=== PATIENT | male | born 1950 | race Hispanic/Latino ===

== ENCOUNTER → 2018-11-25 | Outpatient (CLI) | payer OTHER | END | disposition home or self-care (01) | LOC: SHCH 11:03 | PROVIDERS: ATTEND Internal Medicine Cardiovascular Disease | DX: I48.1 Persistent atrial fibrillation (principal) | CPT/HCPCS: 93306 ==

== ENCOUNTER 2018-12-05 07:18 | Day surgery (SDC) | payer OTHER ==
[2018-12-04 10:15] VITALS: BP 91/65
[2018-12-04 10:38] LABS: EOSINOPHILS % (AUTO) 6.2 % (0.0-8.0); HEMATOCRIT 47.7 % (42-54); LYMPHOCYTES % (AUTO) 32.5 % (21.0-51.0); MEAN CORPUSCULAR HEMOGLOBIN 32.1 pg (27.0-33.0); MEAN CORPUSCULAR HGB CONC 33.3 g/dL (32.0-36.0); MEAN CORPUSCULAR VOLUME 96.6 fL (79-99); MONOCYTES % (AUTO) 5.5 % (3.0-13.0); NEUTROPHILS % (AUTO) 54.8 % (40.0-77.0); NUCLEATED RED BLOOD CELLS 0.1 % (0.0-0.19); PLATELET COUNT (AUTO) 199 K/uL (130-400); RED BLOOD CELL COUNT(AUTO) 4.94 MIL/uL (4.50-6.20); RED CELL DISTRIBUTION WIDTH 13.4 % (11.0-15.5); WHITE BLOOD COUNT (AUTO) 4.4 K/uL (4.8-10.8)
[2018-12-04 10:42] LABS: CREATININE 0.8 mg/dL (0.5-1.5); POTASSIUM 4.6 mmol/L (3.5-5.1)
[2018-12-04 10:52] LABS: INR 1.05 (0.85-1.15); PARTIAL THROMBOPLASTIN TIME 27.9 SEC (26.3-35.5)
[~2018-12-05] VITALS: Ht 180.3 cm; Wt 82.0 kg
[2018-12-05] VITALS (11 sets, daily range): BP systolic 90–128; BP diastolic 54–72
[~2018-12-05 07:18] MED LIST: MULT-1296 PO; OMEG-148 PO; RIVA20TA PO
[2018-12-05] MEDS ORDERED: SODIUM CHLORIDE 0.9% 1000ML 1,000 ML IV SCH (08:00)
[2018-12-05] MEDS ORDERED: FENTANYL CITRATE PF 50 MCG/1 ML 2ML VIAL ONE (08:18)
[2018-12-05] MEDS ORDERED: MIDAZOLAM HCL 1 MG/ML 2ML VIAL ONE ×2 (08:19→09:15)
[2018-12-05] MEDS ORDERED: NALOXONE HCL 0.4 MG/1 ML ML ONE (08:24)
[2018-12-05] MEDS ORDERED: FLUMAZENIL 0.1MG/1ML 5ML VIAL IV ONE (08:25)
--- NOTE | 2018-12-05 09:26 | NUR ---
TIME OUT DONE FOR CARDIOVERSION WITH DR. HARMON FOR PT WHO IS A-FIB.
--- NOTE | 2018-12-05 09:28 | NUR ---
PT . RECEIVED 50MCG FENTANYL WAIT FOR MEDICATION TO TAKE EFFECT.
--- NOTE | 2018-12-05 09:30 | NUR ---
PT IS STILL SEMI-AWAKE DR. HARMON ORDERED 1 MG VERSED TO BE GIVEN IVP. Addendum: 12/05/18 at 1040 by SAIRA CHOUDHARY RN RN FAUSTINO ORDERED 25MCG OF FENTANYL IVP
--- NOTE | 2018-12-05 09:30 | NUR ---
PT WAS GIVEN 100 J TO CONVERT/ SHOCK IN UNSUCCESSFUL, PT STILL IN A-FIB
--- NOTE | 2018-12-05 09:32 | NUR ---
PER DR. HARMON 25 MCG OF FENTANYL ORDER IVP, V/S STABLE PT AWAKE TO STIMULI.
--- NOTE | 2018-12-05 09:32 | NUR ---
PT SHOCKED @ 150J BY DR HARMON TO CARDIOVERT / UNSUCCESSFUL. PT V/S STABLE AND AWAKE TO STIMULI.
--- NOTE | 2018-12-05 09:34 | NUR ---
PT. STABLE STILL A-FIB, DR. HARMON INCREASE JOULES TO 200, CARDIOVERSION SUCCESSFUL. PT. IS IN NORMAL SINUS
--- NOTE | 2018-12-05 09:34 | NUR ---
END OF CARDIOVERSION
--- NOTE | 2018-12-05 11:11 | NUR ---
SPOKE WITH DR. HARMON PT CAN BE D/C AT 1200 NOON, CAN HAVE A HEART HEALTHY DIET, F/U IN 4 WEEKS IN OFFICE, RESUME [facility], TO PIC UP MONITOR AT OFFICE ON
--- NOTE | 2018-12-05 11:50 | NUR ---
DISCHARGE INSTRUCTIONS PROVIDED DISCHARGE INSTRUCTIONS TO PATIENT'S SPOUSE AND PROVIDED HER WITH PATIENT'S FOLLOW UP APPOINTMENT. INSTRUCTED HER TO GO TO DR ESCOBEDO OFFICE ON SATURDAY TO [facility], SPOUSE VERBALIZED UNDERSTANDING. ALL QUESTIONS/CONCERNS ADDRESSED.
--- NOTE | 2018-12-05 12:00 | NUR ---
PATIENT DISCHARGED PATIENT DISCHARGED FROM HOSPITAL VIA WHEELCHAIR AND TAKEN TO PRIVATE VEHICLE. PATIENT ABLE TO TRANSFER INTO PRIVATE VEHICLE UNASSISTED DRIVEN BY FAMILY.
== END 2018-12-05 12:00 ==
LOC: DAH 07:18
PROVIDERS: ATTEND Internal Medicine Cardiovascular Disease
DX: I48.0 Paroxysmal atrial fibrillation (principal); E11.9 Type 2 diabetes mellitus without complications; E78.5 Hyperlipidemia, unspecified; Z79.899 Other long term (current) drug therapy; Z79.01 Long term (current) use of anticoagulants; Z87.891 Personal history of nicotine dependence; Z72.89 Other problems related to lifestyle; Z98.890 Other specified postprocedural states
CPT/HCPCS: 36415; 80048; 82948; 85025; 85610; 85730; 92960; 93005 ×2; A4215; A4216; A4221; A4222; A4223 ×3; A4606; J2250; J3010; J7030; 99152; J2310; J3490

== ENCOUNTER → 2019-04-03 | Outpatient (CLI) | payer OTHER ==
[~2019-04-03] VITALS: Ht 182.9 cm; Wt 80.3 kg
[~2019-04-03] MED LIST changes: +REGADENOSON 0.4 MG/5 ML PF SYG IVP SCH
== END | disposition home or self-care (01) ==
LOC: SHCH 07:31
PROVIDERS: ATTEND Internal Medicine Cardiovascular Disease
DX: R06.09 Other forms of dyspnea (principal); R07.9 Chest pain, unspecified
CPT/HCPCS: 78452; 93017; 96374; A9500 ×2; J2785

== ENCOUNTER 2022-04-11 14:03 | Emergency (ER) | payer OTHER ==
[~2022-04-11] VITALS: Ht 180.3 cm; Wt 68.5 kg
[~2022-04-11 14:03] MED LIST changes: -REGADENOSON 0.4 MG/5 ML PF SYG IVP SCH
[2022-04-11 14:25] VITALS: BP 125/55
[2022-04-11 14:55] LABS: BASOPHILS % (AUTO) 0.8 % (0.0-5.0); EOSINOPHILS % (AUTO) 1.2 % (0.0-8.0); HEMATOCRIT 39.1 % (42-54); LYMPHOCYTES % (AUTO) 11.7 % (21.0-51.0); MEAN CORPUSCULAR HEMOGLOBIN 31.3 pg (27.0-33.0); MEAN CORPUSCULAR HGB CONC 33.8 g/dL (32.0-36.0); MEAN CORPUSCULAR VOLUME 92.7 fL (79-99); MONOCYTES % (AUTO) 8.7 % (3.0-13.0); NEUTROPHILS % (AUTO) 77.4 % (40.0-77.0); PLATELET COUNT (AUTO) 165 K/uL (130-400); RED BLOOD CELL COUNT(AUTO) 4.22 MIL/uL (4.50-6.20); RED CELL DISTRIBUTION WIDTH 13.4 % (11.0-15.5); WHITE BLOOD COUNT (AUTO) 5.1 K/uL (4.8-10.8)
[2022-04-11 15:22] LABS: CREATININE 0.8 mg/dL (0.5-1.5); POTASSIUM 3.9 mmol/L (3.5-5.1)
[2022-04-11 15:27] LABS: ALBUMIN 3.4 g/dL (3.5-5.0); TOTAL PROTEIN, SERUM 7.1 g/dL (6.0-8.3)
[2022-04-11 16:12] LABS: APPEARANCE,URINE CLEAR (CLEAR); BILIRUBIN,URINE NEGATIVE (NEGATIVE); COLOR,URINE YELLOW (YELLOW); GLUCOSE, URINE (UA) NEGATIVE (NEGATIVE); KETONES,URINE NEGATIVE (NEGATIVE); LEUKOCYTE ESTERASE ,URINE NEGATIVE Leu/uL (NEGATIVE); NITRATE,URINE NEGATIVE (NEGATIVE); OCCULT BLOOD,URINE NEGATIVE (NEGATIVE); PH,URINE 5.5 (5.0-8.0); PROTEIN,URINE 10 mg/dL (NEGATIVE); UROBILINOGEN,URINE 0.2 mg/dL (0.2-1.0)
[2022-04-11 16:18] LABS: MUCUS,URINE RARE LPF (None Seen); RBC,URINE 0-1 /HPF (0-1); WBC,URINE 0-1 /HPF (0-1)
[2022-04-11] MEDS ORDERED: IPRATROPIUM/ALBUTEROL SULFATE 3 ML SOLUTION IH ONE (17:00)
[2022-04-11 17:15] LABS: MAGNESIUM 2.2 mg/dL (1.80-2.40)
[2022-04-11] MEDS ORDERED: IPRATROPIUM 0.5 MG/2.5 ML INH IH ONE (17:40)
[2022-04-11] MEDS ORDERED: ALBUTEROL 0.083% 2.5 MG/3 ML INH IH ONE (17:40)
[2022-04-11] MEDS ORDERED: BENZ-39 PO (18:56)
[2022-04-11] MEDS ORDERED: DOXY-469 PO (18:56)
[2022-04-11] MEDS ORDERED: DOXYCYCLINE HYCLATE 100 MG TABLET PO SCH (19:00)
[2022-04-13] MEDS ORDERED: METO25TA6 PO (10:20)
[2022-04-13] MEDS ORDERED: ATOR20TA65 PO (10:20)
[2022-04-13] MEDS ORDERED: MIDO2.5T PO (10:20)
== END 2022-04-11 19:36 | disposition home or self-care (01) ==
LOC: EDH 14:03
DX: J40 Bronchitis, not specified as acute or chronic (principal); R50.9 Fever, unspecified; Z20.822 Contact with and (suspected) exposure to COVID-19
CPT/HCPCS: 99285; 71045; 87635; 83735; 80053; 85025; 87804 ×2; 83605; 81001; 36415; 93005; 94640; C9803

== ENCOUNTER → 2022-05-02 | Outpatient (CLI) | payer OTHER ==
[~2022-05-02] MED LIST changes: +BENZ-39 PO; +METO25TA6 PO; +MIDO2.5T PO; -RIVA20TA PO
== END | disposition home or self-care (01) ==
LOC: SHCH 07:42
PROVIDERS: ATTEND Internal Medicine Cardiovascular Disease
DX: I51.7 Cardiomegaly (principal); I51.89 Other ill-defined heart diseases; R07.9 Chest pain, unspecified; R06.09 Other forms of dyspnea; E11.9 Type 2 diabetes mellitus without complications; E78.5 Hyperlipidemia, unspecified
CPT/HCPCS: 93306

== ENCOUNTER 2023-05-27 21:03 | Emergency (ER) | payer OTHER ==
[~2023-05-27] VITALS: Ht 165.1 cm; Wt 61.2 kg
[~2023-05-27 21:03] MED LIST changes: +ATOR20TA65 PO; -BENZ-39 PO; +METO25 PO; -METO25TA6 PO; -MIDO2.5T PO; +MIDO5TAB4 PO; -MULT-1296 PO; -OMEG-148 PO; +PANT40GR PO
[2023-05-27 21:49] LABS: BASOPHILS # (AUTO) 0.02 K/uL (0.00-0.20); BASOPHILS % (AUTO) 0.5 % (0.0-5.0); EOSINOPHILS # (AUTO) 0.01 K/uL (0.00-0.70); EOSINOPHILS % (AUTO) 0.3 % (0.0-8.0); HEMATOCRIT 39.3 % (42-54); IMMATURE GRANULOCYTE ABSOLUTE 0.02 K/uL (0-1); LYMPHOCYTES # (AUTO) 0.5 K/uL (1.0-4.8); LYMPHOCYTES % (AUTO) 11.4 % (21.0-51.0); MEAN CORPUSCULAR HEMOGLOBIN 31.7 pg (27.0-33.0); MEAN CORPUSCULAR HGB CONC 32.6 g/dL (32.0-36.0); MEAN CORPUSCULAR VOLUME 97.3 fL (79-99); MONOCYTES # (AUTO) 0.4 K/uL (0.1-1.0); MONOCYTES % (AUTO) 11.1 % (3.0-13.0); NEUTROPHILS % (AUTO) 76.2 % (40.0-77.0); PLATELET COUNT (AUTO) 162 K/uL (130-400); RED BLOOD CELL COUNT(AUTO) 4.04 MIL/uL (4.50-6.20); RED CELL DISTRIBUTION WIDTH 13.2 % (11.0-15.5)
[2023-05-27 21:58] LABS: CREATININE 0.6 mg/dL (0.5-1.5); POTASSIUM 4.6 mmol/L (3.5-5.1)
[2023-05-27 22:08] LABS: ALBUMIN 2.9 g/dL (3.5-5.0); BILIRUBIN,TOTAL 0.5 mg/dL (0.2-1.0)
[2023-05-27] MEDS: 0.9%NACL 1000ML 1,000 ML IV ONE (22:08)
[2023-05-27 22:27] LABS: INFLUENZA TYPE A Negative For Type A (NEGATIVE); INFLUENZA TYPE B Negative For Type B (NEGATIVE)
[2023-05-27] MEDS: ACETAMINOPHEN 650 MG/20.3 ML UDCUP PEG ONE (22:29)
[2023-05-27 22:32] LABS: APPEARANCE,URINE CLEAR (CLEAR); BILIRUBIN,URINE NEGATIVE (NEGATIVE); COLOR,URINE LIGHT-YELLOW (YELLOW); GLUCOSE, URINE (UA) NEGATIVE (NEGATIVE); KETONES,URINE NEGATIVE (NEGATIVE); LEUKOCYTE ESTERASE ,URINE NEGATIVE Leu/uL (NEGATIVE); NITRATE,URINE NEGATIVE (NEGATIVE); OCCULT BLOOD,URINE SMALL (NEGATIVE); PROTEIN,URINE NEGATIVE (NEGATIVE); UROBILINOGEN,URINE 0.2 mg/dL (0.2-1.0)
[2023-05-27 22:33] LABS: ADD UA MICROSCOPIC YES
[2023-05-27 22:37] LABS: BACTERIA,URINE FEW /HPF (None Seen); SQUAMOUS EPITHELIAL CELL,UR RARE /HPF (0-2)
[2023-05-27 22:42] LABS: COVID19 (SARS ANTIGEN RAPID) POSITIVE FOR SARS AG (NEGATIVE)
[2023-05-27] MEDS ORDERED: GUAIF10 PO (22:42)
[2023-05-27 23:09] VITALS: TEMP 99
[2023-05-27] MEDS: IBUPROFEN 100 MG/5 ML SUSP UDCUP PO ONE (23:09)
[2023-05-27 23:19] VITALS: BP 127/40; PULSE 97; RESP 17; O2SAT 96
== END 2023-05-27 23:20 | disposition home or self-care (01) ==
LOC: EDH 21:03
DX: U07.1 COVID-19 (principal); R50.9 Fever, unspecified; R47.01 Aphasia; R73.9 Hyperglycemia, unspecified; Z93.1 Gastrostomy status; E78.00 Pure hypercholesterolemia, unspecified; I10 Essential (primary) hypertension; Z79.899 Other long term (current) drug therapy
CPT/HCPCS: 99285; 71045; 87426; 84484; 80053; 85025; 87804 ×2; 81001; 36415; 93005; J7030